=== PATIENT | male | born 1970 | race Caucasian/White ===

== ENCOUNTER 2023-08-26 17:11 | Emergency (ER) | payer BC, SELFPAY ==
[2023-08-26 17:11] VITALS: BP 129/76; BMI 22.3
[2023-08-26 17:42] VITALS: BP 131/74
[2023-08-26 18:00] VITALS: BP 128/74
--- NOTE | 2023-08-26 18:30 | ED.MUSCINJ ---
HPI-Injury
General
Chief Complaint: Fall
Source: patient
Time Seen by Provider: 08/26/23 18:12
Nursing documentation reviewed up to this point in time: agreed with
History of Present Illness-Injury
Initial Injury comments:
53-year-old male presents after falling from a ladder. He landed on some stone steps. Though he did not hit his head, he felt brief loss of consciousness. He landed and injured his left shoulder and left thigh, coccyx and left wrist. Patient was
able to ambulate and transfer after the fall. He has a mild headache but denies any other major symptoms. Denies chest pain or shortness of breath. Reports no abdominal pain
Phy Exam
Physical Exam
Physical Exam:
Physical Exam
Vital signs and allergy list reviewed and agreed with.
GENERAL: Alert , in minimal to no apparent distress
EYE: pupils equal, EOMI, anicteric
NECK: Supple, no significant adenopathy. No masses. Trachea midline
ENT: Oropharynx is clear, mmm.
CARDIAC: Regular rate and rhythm . No M/R/G
LUNGS: Clear breath sounds bilaterally, no acute respiratory distress, no wheezes/rales/rhonchi
ABDOMEN: Soft, without focal tenderness, no r/g, no cvat. Normal BSx4q
NEUROLOGICAL: Alert and oriented, no focal neuro deficits
SKIN: Warm and dry, skin intact. Abrasions to the wrist. Tenderness to palpation behind the left thigh but no palpable mass.
MUSCULOSKELETAL: No edema, well perfused. Moves all 4 extremities. Normal hip rolling test. No knee tenderness to palpation. No ankle findings
PSYCH: Normal and appropriate interaction.
Injury Course
Orders/Labs/Results
Orders:
Orders
08/26/23 18:11
Coccyx/Sacrum, 2 View CR [CR Sacrum/coccyx Min 2 View] Urgent
Comment:
Reason For Exam: fall
Hip, Left 2-3 Views [CR Hip - LT w/wo Pel 2-3 Vw*] Urgent
Comment:
Reason For Exam: fall
Include a pelvis x-ray?: Yes
Shoulder, Left, Trauma CR [CR Shoulder, Trauma - Left] Urgent
Comment:
Reason For Exam: fall
08/26/23 18:29
CT Head W/o Iv Contrast Urgent
Comment:
Reason For Exam: fall, brief loc
08/26/23 19:19
Urinalysis Reflex To Culture Urgent
Date Specimen was Collected: 08/26/23
Time Specimen was Collected: 19:15
Urine Microscopic Reflex Cult Urgent
Urine Culture Urgent
ANA Source: U
Specimen Description:
Date Specimen was Collected: 08/26/23
Time Specimen was Collected: 19:15
Abnormal Lab Results
08/26/23
19:19
Urine Ketones Trace A
(Negative)
Ur Occult Blood Reflex Trace A
(Negative)
Leukocyte Esterase Rfl 1+ A
(Negative)
Urine RBC 3-6 A /HPF
(0-2)
*Critical Care Note
Total Time (30-74mins, 75-104mins- exclusive of procedures): Not Applicable
ED Attending Note
-
Portions of this chart may have been created with voice recognition software.� Occasional wrong word or��sound alike� substitutions may have occurred due to the inherent limitations of voice recognition software.
Discharge Plan
Departure
Patient Disposition: Home (Routine Discharge)
Date of Disposition: 08/26/23
Time of Disposition: 19:38
Patient with high blood pressure during this ER visit?: Yes
Condition: Good
Discharge Problem:
Fall, Contusion, Coccyx contusion
Instructions: Head Injury in Adults (DC), Contusion (DC), Skin Abrasions (DC), Coccyx Injury ED, BLOOD PRESSURE
Referrals:
Micah Elise MD [Family Provider] -
Interventions
Interventions:
*Risk Screen - Suicide Last Done: 08/26/23 17:43
*General Assessment Last Done: 08/26/23 17:43
*Neglect/Abuse Screening Last Done: 08/26/23 17:43
ED- Fall Risk Assessment Last Done: 08/26/23 17:43
*ED COVID-19 Vaccine History Last Done: 08/26/23 17:43
*Nursing Disposition Last Done: 08/26/23 19:48
ED-Musculoskeletal Assessment Last Done: 08/26/23 17:43
ED- Neurological Assessment Last Done: 08/26/23 18:32
ED-Skin Assessment Last Done: 08/26/23 17:43
Discharge Date and Time
Discharge Date/Time: 08/26/23 19:49
Print Language: [place]
[2023-08-26 18:32] VITALS: BP 125/68
[2023-08-26 19:27] LABS: Urine Albumin Trace (Neg - Trace); Urine Bilirubin Negative (Negative); Urine Character Clear (Clear); Urine Color Yellow; Urine Glucose Negative (Negative); Urine Ketone Trace (Negative); Urine Leukocyte 1+ (Negative); Urine Nitrite Negative (Negative); Urine Occult Blood Trace (Negative); Urine Urobilinogen Negative (Neg - 1+)
[2023-08-26 19:38] LABS: Urine Squamous Cell 0-2 /LPF (Few)
[2023-08-26 19:48] VITALS: BP 136/79
== END 2023-08-26 19:49 | disposition home or self-care (01) ==
LOC: EMR 17:11
PROVIDERS: EMERGENCY PHYSICIAN Student in an Organized Health Care Education/Training Program; FAMILY PHYSICIAN Internal Medicine
DX: S30.0XXA Contusion of lower back and pelvis, initial encounter (principal); W11.XXXA Fall on and from ladder, initial encounter
CPT/HCPCS: 99285; 70450; 72220; 73030; 73502; 81003; 81015; 87086

== ENCOUNTER 2023-08-31 10:14 | Emergency (ER) | payer SELFPAY ==
[2023-08-31 10:27] VITALS: BP 111/74
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
[2023-08-31 10:58] VITALS: BMI 23.5
[2023-08-31 11:09] VITALS: BP 121/84
[2023-08-31] MEDS: TYLENOL 1000 MG PO (11:14)
[2023-08-31 11:23] LABS: % Basophils 0.6 % (0-2); % Eosinophils 2.4 % (0-6); % Immature Granulocytes 0.3 % (0-0.5); % Monocytes 5.2 % (1.7-9.3); % Neutrophils 63.5 % (42.2-75.2); Absolute Eosinophils 0.2 10^3/uL (0-0.7); Absolute Lymphocytes 1.8 10^3/uL (1.2-3.4); Absolute Monocytes 0.3 10^3/uL (0.1-0.6); Hematocrit 38.1 % (39.0-52.0); Hemoglobin 13.3 g/dL (13.0-18.0); Mean Corp Hgb Conc. 34.9 g/dL (33.0-37.0); Mean Corpuscular Hgb 30.2 pg (27.0-31.0); Mean Corpuscular Volume 86.6 fL (80.0-94.0); Nucleated Red Blood Cells % 0 % (-); Platelet Count 180 10^3/uL (130-400); Red Cell Dist. Width 12.5 % (11.5-14.5); White Blood Cell Count 6.3 10^3/uL (4.8-10.8)
[2023-08-31 11:42] LABS: ALT (SGPT) 20 U/L (0-50); AST (SGOT) 37 U/L (17-59); Albumin 4.5 g/dl (3.5-5.0); Alkaline Phosphatase 57 U/L (38-126); Blood Urea Nitrogen 14 mg/dl (9-20); Calcium 9.8 mg/dl (8.4-10.2); Carbon Dioxide 26 mmol/L (22-30); Chloride 102 mmol/L (98-107); Estimated Creatinine Clearance 125 ml/min; Glucose 93 mg/dl (70-99); Potassium 4.7 mmol/L (3.5-5.1); Sodium 136 mmol/L (135-145); Total Bilirubin 1.3 mg/dl (0.2-1.3); Total Protein 6.9 g/dl (6.3-8.2); eGFR > 60.00
[2023-08-31 11:54] LABS: Troponin I < 0.012 ng/ml
[2023-08-31 12:00] VITALS: BP 121/89
[2023-08-31 13:00] VITALS: BP 109/70
[2023-08-31 14:25] VITALS: BP 117/59
== END 2023-08-31 14:26 | disposition home or self-care (01) ==
LOC: EMR 10:14
PROVIDERS: Nurse Practitioner; EMERGENCY PHYSICIAN Emergency Medicine; FAMILY PHYSICIAN Internal Medicine
DX: R07.89 Other chest pain (principal); M54.2 Cervicalgia; M54.50 Low back pain, unspecified; V89.2XXA Person injured in unspecified motor-vehicle accident, traffic, initial encounter
CPT/HCPCS: 99285; 70450; 71046; 72125; 80053; 84484; 85025; 93005

== ENCOUNTER → 2023-09-16 09:50 | Outpatient (REF) | payer OTHER, SELFPAY | LOC: RAD 09:50 | PROVIDERS: ATTENDING PHYSICIAN Chiropractor; FAMILY PHYSICIAN Internal Medicine | DX: M99.03 Segmental and somatic dysfunction of lumbar region (principal); M54.42 Lumbago with sciatica, left side | CPT/HCPCS: 72110 ==

== ENCOUNTER → 2023-10-08 09:19 | Outpatient (REF) | payer OTHER, BC, SELFPAY | LOC: MRI 3T 09:19 | PROVIDERS: ATTENDING PHYSICIAN Chiropractor; FAMILY PHYSICIAN Internal Medicine | DX: M99.03 Segmental and somatic dysfunction of lumbar region (principal); M54.42 Lumbago with sciatica, left side | CPT/HCPCS: 72148 ==

== ENCOUNTER → 2023-11-02 07:19 | Outpatient (REF) | payer OTHER, BC, SELFPAY | LOC: EMG 07:19 | PROVIDERS: ATTENDING PHYSICIAN Chiropractor; FAMILY PHYSICIAN Internal Medicine | DX: M99.03 Segmental and somatic dysfunction of lumbar region (principal); M54.42 Lumbago with sciatica, left side | CPT/HCPCS: 95886; 95909 ==